=== PATIENT | female | born 1940 | race Caucasian/White ===

== ENCOUNTER 2017-03-24 16:47 | Inpatient (IN) | payer MEDICARE, MEDICAID ==
[~2017-03-24] VITALS: Ht 144.8 cm; Wt 69.6 kg
[~2017-03-24 16:47] MED LIST: ACAR50TA PO; ALBU4TAB6 PO; ASPI-1159 PO; FLUT1DIS3 IH; LOSA50TA20 PO; MONT10TA21 PO; OXYB5TAB11 PO; POLY10DR3 LEFTEYE
[2017-03-24] MEDS ORDERED: SODIUM CHLORIDE 0.9% 1000ML BAG (SEPSIS BOLUS) IV ONE (17:15)
[2017-03-24] MEDS ORDERED: CEFTRIAXONE 2 G PREMIX 50 ML IV ONE (17:15)
[2017-03-24 17:49] LABS: BASOPHILS % 0.6 % (0.0-2.0); EOSINOPHILS % 0.5 % (0.0-5.0); HEMOGLOBIN. 12.7 g/dL (12.0-16.0); LYMPHOCYTES % 10.1 % (20.0-50.0); MEAN CORPUSCULAR HEMOGLOBIN 30.7 pg (28.0-32.0); MEAN CORPUSCULAR VOLUME 89.3 fL (81.0-99.0); MEAN PLATELET VOLUME 9.5 fl (7.4-10.4); MONOCYTES % 7.8 % (2.0-8.0); PLATELET 157 x1000/uL (130-400); RED BLOOD CELL COUNT 4.14 mill/uL (4.2-5.4); RED CELL DISTRIBUTION WIDTH 13.9 % (11.6-14.6)
[2017-03-24 17:57] LABS: INR 1.1; PARTIAL THROMBOPLASTIN TIME 25.4 sec (23.4-31.0); PROTHROMBIN TIME 11.2 sec (9.4-11.6)
[2017-03-24 18:06] LABS: CARBON DIOXIDE 23 mEq/L (21-32); CHLORIDE 101 mEq/L (98-107); TROPONIN I < 0.02 ng/mL (0.00-0.04)
[2017-03-24 18:24] LABS: CLARITY URINE CLEAR (CLEAR); COLOR URINE YELLOW (YELLOW); GLUCOSE URINE NEGATIVE (NEGATIVE); KETONES URINE TRACE (NEGATIVE); LEUKOCYTE ESTERASE URINE 2+ (NEGATIVE); NITRITE URINE NEGATIVE (NEGATIVE); OCCULT BLOOD URINE 1+ (NEGATIVE); PROTEIN URINE NEGATIVE (NEGATIVE); SPECIFIC GRAVITY URINE 1.006 (1.005-1.030); UROBILINOGEN URINE 0.2 E.U./dL (0.2-1.0)
[2017-03-24] MEDS ORDERED: LEVOFLOXACIN 500MG PREMIX 100 ML IV ONE (18:30)
[2017-03-24] MEDS ORDERED: TRAMADOL 50MG TABLET PO ONE (18:30)
[2017-03-24 21:27] VITALS: BP 118/61
[2017-03-24 21:35] VITALS: BP 118/61
[2017-03-24 22:00] VITALS: BP 114/56
[2017-03-24] MEDS ORDERED: CEPH-569 PO (22:08)
[2017-03-24] MEDS ORDERED: CELE200C PO (22:08)
[2017-03-24] MEDS ORDERED: PNEUMOCOCCAL 23-VAL P-SAC VAC 0.5 ML IM ONE (22:30)
[2017-03-24] MEDS ORDERED: SODIUM CHLORIDE 0.9% 1,000 ML IV SCH (22:40)
[2017-03-24] MEDS ORDERED: ONDANSETRON HCL 4MG/2ML VIAL IV PRN (22:45)
[2017-03-24] MEDS ORDERED: MORPHINE SULFATE 4 MG/ML CPJ (NOT FOR IM USE) IV PRN (22:45)
[2017-03-24] MEDS ORDERED: HYDROCODONE/ACETAMINOPHEN 5/325MG TABLET PO PRN (22:45)
[2017-03-24] MEDS ORDERED: ROCEPHINE XX SCH (23:00)
[2017-03-25] VITALS (12 sets, daily range): BP systolic 107–150; BP diastolic 45–76
[2017-03-25] MEDS ORDERED: DEXTROSE 50% WATER 50ML SYRINGE IV PRN (01:00)
[2017-03-25] MEDS: BLOOD SUGAR DIAGNOSTIC STRIP TEST SCH ×4 (06:48→21:02)
[2017-03-25] MEDS: INSULIN LISPRO 100 UNITS/ML SUBCUT SCH ×4 (06:49→21:02)
[2017-03-25] MEDS: ENOXAPARIN 40MG/0.4ML SYR SUBCUT SCH (09:01)
[2017-03-25] MEDS: THIAMINE HCL 100MG TABLET PO SCH (09:02)
[2017-03-25] MEDS ORDERED: CEPHALEXIN 500MG CAPSULE PO SCH ×2 (17:00)
[2017-03-25] MEDS ORDERED: CEFTRIAXONE 1 G PREMIX 50 ML IV SCH (19:00)
[2017-03-25] MEDS ORDERED: TRAMADOL 50MG TABLET PO PRN (20:45)
[2017-03-25] MEDS ORDERED: ACETAMINOPHEN 325MG TABLET PO PRN (21:00)
[2017-03-25] MEDS ORDERED: IPRATROPIUM/ALBUTEROL 0.5-3(2.5)MG/3ML NEB HHN PRN (21:00)
[2017-03-25] MEDS ORDERED: MONTELUKAST SODIUM 10MG TABLET PO SCH (21:00)
[2017-03-26] VITALS (7 sets, daily range): BP systolic 114–150; BP diastolic 57–78
[2017-03-26] MEDS: INSULIN LISPRO 100 UNITS/ML SUBCUT SCH ×3 (07:30→17:17)
[2017-03-26] MEDS: BLOOD SUGAR DIAGNOSTIC STRIP TEST SCH ×3 (07:30→17:17)
[2017-03-26] MEDS ORDERED: LOSARTAN POTASSIUM 50 MG TABLET PO SCH (09:00)
[2017-03-26] MEDS ORDERED: OXYBUTYNIN CHLORIDE 5MG TABLET PO SCH (09:00)
[2017-03-26] MEDS ORDERED: CELECOXIB 200MG CAPSULE PO SCH (09:00)
[2017-03-26] MEDS ORDERED: ASPIRIN 81MG EC TABLET PO SCH (09:00)
[2017-03-26] MEDS: THIAMINE HCL 100MG TABLET PO SCH (09:02)
[2017-03-26] MEDS: ENOXAPARIN 40MG/0.4ML SYR SUBCUT SCH (09:02)
[2017-03-26] MEDS ORDERED: LEVOFLOXACIN 500MG TABLET PO SCH (17:15)
[2017-03-26] MEDS ORDERED: LIDOCAINE 5% PATCH TOP SCH (18:00)
== END 2017-03-26 18:00 | disposition home or self-care (01) | DRG 689 ==
LOC: ER 16:47 → 3WST 17:11 → EDBEDREQ 18:34 → ENRESERV 19:56 → 6WST 03-26 03:05
PROVIDERS: ADMIT Internal Medicine Nephrology; ATTEND Internal Medicine Nephrology
DX: N39.0 Urinary tract infection, site not specified (principal); G93.40 Encephalopathy, unspecified; E10.9 Type 1 diabetes mellitus without complications; I11.0 Hypertensive heart disease with heart failure; I50.9 Heart failure, unspecified; N30.00 Acute cystitis without hematuria; E66.9 Obesity, unspecified; Z96.649 Presence of unspecified artificial hip joint; M17.11 Unilateral primary osteoarthritis, right knee; K57.30 Diverticulosis of large intestine without perforation or abscess without bleeding; J45.909 Unspecified asthma, uncomplicated; Z79.4 Long term (current) use of insulin; Z82.49 Family history of ischemic heart disease and other diseases of the circulatory system; Z83.3 Family history of diabetes mellitus; Z79.82 Long term (current) use of aspirin; Z79.899 Other long term (current) drug therapy; Z68.33 Body mass index [BMI] 33.0-33.9, adult
CPT/HCPCS: 36415; 70450; 71010; 73562; 73700; 74176; 80053; 81001; 82962; 83036; 83605; 83690; 83880; 84484; 84550; 85025; 85610; 85730; 87040; 87086; 93005; 94664; 96361; 96365; 97116; 97161; 99291; J0696; J1650; J1815; J1956; J7030; J7620

== ENCOUNTER → 2018-01-13 | Outpatient (CLI) | payer MEDICARE, MEDICAID ==
[~2018-01-13] MED LIST changes: +CELE200C PO; +IOHEXOL-300 50 ML BOTTLE IV ONE
== END | disposition home or self-care (01) ==
LOC: CT 08:08
PROVIDERS: ATTEND Urology
DX: K63.2 Fistula of intestine (principal); N13.70 Vesicoureteral-reflux, unspecified; I51.7 Cardiomegaly; M48.56XD Collapsed vertebra, not elsewhere classified, lumbar region, subsequent encounter for fracture with routine healing
CPT/HCPCS: 74176; J7040; Q9967; A4315

== ENCOUNTER → 2018-02-12 | Outpatient (CLI) | payer MEDICARE, MEDICAID ==
[~2018-02-12] MED LIST changes: -IOHEXOL-300 50 ML BOTTLE IV ONE
== END | disposition home or self-care (01) ==
LOC: RAD 11:34
PROVIDERS: ATTEND Internal Medicine Nephrology
DX: J44.9 Chronic obstructive pulmonary disease, unspecified (principal); I51.7 Cardiomegaly; E11.9 Type 2 diabetes mellitus without complications
CPT/HCPCS: 71046

== ENCOUNTER 2018-10-15 17:07 | Emergency (ER) | payer MEDICARE, MEDICAID ==
[~2018-10-15] VITALS: Ht 152.4 cm; Wt 64.0 kg
[2018-10-15] MEDS ORDERED: ALBUTEROL (0.083%) 2.5MG/3ML NEB HHN STA (18:03)
[2018-10-15] MEDS ORDERED: IPRATROPIUM BROMIDE (0.02%) 0.5MG/2.5ML NEB HHN STA (18:03)
[2018-10-15] MEDS ORDERED: ALBUTEROL (0.5%) 2.5MG/0.5ML NEB HHN ONE (18:28)
[2018-10-15] MEDS ORDERED: IPRATROPIUM BROMIDE (0.02%) 0.5MG/2.5ML NEB ONE (18:29)
[2018-10-15] MEDS ORDERED: ALBUTEROL (0.083%) 2.5MG/3ML NEB ONE (18:29)
[2018-10-15 19:49] LABS: CHLORIDE 102 mEq/L (98-107)
[2018-10-15 19:53] LABS: BASOPHILS % 0.5 % (0.0-2.0); EOSINOPHILS % 4.2 % (0.0-5.0); HEMATOCRIT. 38.5 % (36.0-48.0); HEMOGLOBIN. 13.1 g/dL (12.0-16.0); LYMPHOCYTES % 32.2 % (20.0-50.0); MEAN CORPUSCULAR HEMOGLOBIN 31.8 pg (28.0-32.0); MEAN CORPUSCULAR VOLUME 93.2 fL (81.0-99.0); MEAN PLATELET VOLUME 9.8 fl (7.4-10.4); MONOCYTES % 10.3 % (2.0-8.0); NEUTROPHILS % 52.8 % (40.0-76.0); PLATELET 157 x1000/uL (130-400); RED BLOOD CELL COUNT 4.13 mill/uL (4.2-5.4); RED CELL DISTRIBUTION WIDTH 13.6 % (11.6-14.6)
[2018-10-15 21:06] VITALS: BP 120/71
== END 2018-10-15 21:17 | disposition home or self-care (01) ==
LOC: ER 17:07 → CANBEDREQ 22:05
DX: J44.1 Chronic obstructive pulmonary disease with (acute) exacerbation (principal); J98.01 Acute bronchospasm; J06.9 Acute upper respiratory infection, unspecified; E87.6 Hypokalemia; E11.9 Type 2 diabetes mellitus without complications; I10 Essential (primary) hypertension; Z79.899 Other long term (current) drug therapy
CPT/HCPCS: 36415; 71045; 80053; 83880; 84484; 85025; 93005; 94640; 99284; J7611

== ENCOUNTER 2018-10-21 06:59 | Inpatient (IN) | payer MEDICARE, MEDICAID ==
[~2018-10-21] VITALS: Ht 160 cm; Wt 66.7 kg
[~2018-10-21 06:59] MED LIST changes: -ASPI-1159 PO; +ASPI-1393 PO; -LOSA50TA20 PO; +LOSA50TA41 PO
[2018-10-21] MEDS ORDERED: ACETAMINOPHEN 325MG TABLET PO ONE (07:30)
[2018-10-21 08:55] LABS: BASOPHILS % 0.3 % (0.0-2.0); EOSINOPHILS % 0.8 % (0.0-5.0); HEMATOCRIT. 40.4 % (36.0-48.0); HEMOGLOBIN. 13.5 g/dL (12.0-16.0); LYMPHOCYTES % 13.6 % (20.0-50.0); MEAN CORPUSCULAR HEMOGLOBIN 31.1 pg (28.0-32.0); MEAN CORPUSCULAR VOLUME 92.5 fL (81.0-99.0); MEAN PLATELET VOLUME 8.8 fl (7.4-10.4); MONOCYTES % 5.1 % (2.0-8.0); NEUTROPHILS % 80.2 % (40.0-76.0); PLATELET 209 x1000/uL (130-400); RED BLOOD CELL COUNT 4.36 mill/uL (4.2-5.4); RED CELL DISTRIBUTION WIDTH 13.4 % (11.6-14.6)
[2018-10-21 09:00] LABS: CHLORIDE 103 mEq/L (98-107)
[2018-10-21 09:02] LABS: PROTHROMBIN TIME 10.4 sec (9.6-11.0)
[2018-10-21] MEDS ORDERED: ONDANSETRON HCL 4MG/2ML INJ IV ONE (09:45)
[2018-10-21] MEDS ORDERED: KETAMINE HCL 50 MG/ML 10ML IV ONE (09:45)
[2018-10-21] MEDS ORDERED: PROPOFOL 200MG/20ML VIAL IV PRN (09:45)
[2018-10-21 14:30] VITALS: BP 129/66
[2018-10-21 16:00] VITALS: BP 140/75
[2018-10-21] MEDS: TRAMADOL 50MG TABLET PO PRN (18:09)
[2018-10-21] MEDS: LIDOCAINE 5% PATCH TOP SCH ×2 (18:30→22:01)
[2018-10-21 20:00] VITALS: BP 138/73
[2018-10-21] MEDS ORDERED: MAGNESIUM/ALUMINUM HYDROXIDE/SIMETHICONE 30ML UDC PO PRN (23:45)
[2018-10-21] MEDS ORDERED: ONDANSETRON HCL 4MG/2ML INJ IV PRN (23:45)
[2018-10-21] MEDS ORDERED: ACETAMINOPHEN 325MG TABLET PO PRN (23:45)
[2018-10-21] MEDS ORDERED: DOCUSATE SODIUM 100MG CAPSULE PO PRN (23:45)
[2018-10-21] MEDS ORDERED: DEXTROSE 50% WATER 50ML SYRINGE IV PRN ×2 (23:45)
[2018-10-22] VITALS: BP 125/61
[2018-10-22 04:00] VITALS: BP 128/83
[2018-10-22] MEDS: BLOOD SUGAR DIAGNOSTIC STRIP TEST SCH ×4 (06:27→21:02)
[2018-10-22 07:34] LABS: BASOPHILS % 0.4 % (0.0-2.0); HEMOGLOBIN. 13.3 g/dL (12.0-16.0); LYMPHOCYTES % 13.3 % (20.0-50.0); MEAN CORPUSCULAR HEMOGLOBIN 31.5 pg (28.0-32.0); MEAN CORPUSCULAR VOLUME 92.3 fL (81.0-99.0); MEAN PLATELET VOLUME 9.5 fl (7.4-10.4); MONOCYTES % 5.8 % (2.0-8.0); NEUTROPHILS % 79.5 % (40.0-76.0); PLATELET 218 x1000/uL (130-400); RED BLOOD CELL COUNT 4.23 mill/uL (4.2-5.4); RED CELL DISTRIBUTION WIDTH 13.6 % (11.6-14.6)
[2018-10-22 07:55] LABS: CHLORIDE 101 mEq/L (98-107)
[2018-10-22 08:00] VITALS: BP 150/83
[2018-10-22 08:06] LABS: PHOSPHORUS 3.3 mg/dL (2.5-4.9)
[2018-10-22] MEDS: INSULIN LISPRO 100 UNITS/ML SUBCUT SCH ×4 (08:23→21:00)
[2018-10-22] MEDS: LIDOCAINE 5% PATCH TOP SCH ×3 (08:24→09:23)
[2018-10-22] MEDS: OXYBUTYNIN CHLORIDE 5MG TABLET PO SCH (10:46)
[2018-10-22] MEDS: LOSARTAN POTASSIUM 50 MG TABLET PO SCH (10:46)
[2018-10-22] MEDS: CELECOXIB 200MG CAPSULE PO SCH (10:47)
[2018-10-22 12:00] VITALS: BP 111/57
[2018-10-22] MEDS: POLYMYXIN B SULFATE/TMP 10ML BOTTLE LEFTEYE SCH ×3 (12:38→21:01)
[2018-10-22] MEDS: FLUTICASONE/VILANTEROL 200-25 BLST.W.DEV ORI SCH (12:39)
[2018-10-22 16:00] VITALS: BP 115/57
[2018-10-22] MEDS: MONTELUKAST SODIUM 10MG TABLET PO SCH (17:39)
[2018-10-22 20:00] VITALS: BP 131/76
[2018-10-22] MEDS: TRAMADOL 50MG TABLET PO PRN (21:01)
[2018-10-23] VITALS: BP 97/73
[2018-10-23 04:00] VITALS: BP 144/79
[2018-10-23] MEDS: INSULIN LISPRO 100 UNITS/ML SUBCUT SCH ×4 (07:04→21:00)
[2018-10-23] MEDS: BLOOD SUGAR DIAGNOSTIC STRIP TEST SCH ×4 (07:20→21:16)
[2018-10-23 08:05] VITALS: BP 125/72
[2018-10-23] MEDS: CELECOXIB 200MG CAPSULE PO SCH (08:29)
[2018-10-23] MEDS: OXYBUTYNIN CHLORIDE 5MG TABLET PO SCH (08:30)
[2018-10-23] MEDS: LIDOCAINE 5% PATCH TOP SCH (08:33)
[2018-10-23] MEDS: LOSARTAN POTASSIUM 50 MG TABLET PO SCH (08:34)
[2018-10-23] MEDS: FLUTICASONE/VILANTEROL 200-25 BLST.W.DEV ORI SCH (08:43)
[2018-10-23] MEDS: POLYMYXIN B SULFATE/TMP 10ML BOTTLE LEFTEYE SCH ×4 (09:21→21:16)
[2018-10-23 11:33] LABS: BASOPHILS % 0.1 % (0.0-2.0); EOSINOPHILS % 1.5 % (0.0-5.0); HEMATOCRIT. 41.6 % (36.0-48.0); LYMPHOCYTES % 12.1 % (20.0-50.0); MEAN CORPUSCULAR HEMOGLOBIN 31.2 pg (28.0-32.0); MEAN CORPUSCULAR VOLUME 92.7 fL (81.0-99.0); MONOCYTES % 4.6 % (2.0-8.0); NEUTROPHILS % 81.7 % (40.0-76.0); PLATELET 220 x1000/uL (130-400); RED BLOOD CELL COUNT 4.48 mill/uL (4.2-5.4); RED CELL DISTRIBUTION WIDTH 13.5 % (11.6-14.6)
[2018-10-23 11:36] VITALS: BP 120/68
[2018-10-23 12:24] LABS: CHLORIDE 101 mEq/L (98-107)
[2018-10-23 12:31] LABS: PHOSPHORUS 2.9 mg/dL (2.5-4.9)
[2018-10-23] MEDS: IPRATROPIUM/ALBUTEROL 0.5-3(2.5)MG/3ML NEB HHN PRN (14:58)
[2018-10-23 15:35] VITALS: BP 120/63
[2018-10-23] MEDS ORDERED: DOCUSATE SODIUM 100MG CAPSULE PO PRN (17:15)
[2018-10-23] MEDS: MONTELUKAST SODIUM 10MG TABLET PO SCH (17:39)
[2018-10-23] MEDS: HYDROCODONE/ACETAMINOPHEN 5/325MG TABLET PO PRN (17:40)
[2018-10-23 20:00] VITALS: BP 116/57
[2018-10-24] VITALS: BP 139/62
[2018-10-24 04:00] VITALS: BP 124/71
[2018-10-24] MEDS: BLOOD SUGAR DIAGNOSTIC STRIP TEST SCH ×4 (06:29→20:17)
[2018-10-24] MEDS: LIDOCAINE 5% PATCH TOP SCH (07:23)
[2018-10-24 08:00] VITALS: BP 126/76
[2018-10-24] MEDS: CELECOXIB 200MG CAPSULE PO SCH (08:40)
[2018-10-24] MEDS: OXYBUTYNIN CHLORIDE 5MG TABLET PO SCH (08:40)
[2018-10-24] MEDS: LOSARTAN POTASSIUM 50 MG TABLET PO SCH (08:41)
[2018-10-24] MEDS: INSULIN LISPRO 100 UNITS/ML SUBCUT SCH ×4 (08:41→20:17)
[2018-10-24] MEDS: POLYMYXIN B SULFATE/TMP 10ML BOTTLE LEFTEYE SCH ×4 (08:43→20:17)
[2018-10-24] MEDS: FLUTICASONE/VILANTEROL 200-25 BLST.W.DEV ORI SCH (08:43)
[2018-10-24 11:59] VITALS: BP 133/64
[2018-10-24 15:41] VITALS: BP 101/54
[2018-10-24] MEDS: MONTELUKAST SODIUM 10MG TABLET PO SCH (17:01)
[2018-10-24 20:00] VITALS: BP 124/73
[2018-10-24] MEDS: GUAIFENESIN/CODEINE 200-20MG/10ML UDC PO PRN (20:16)
[2018-10-24] MEDS: TRAMADOL 50MG TABLET PO PRN (20:16)
[2018-10-24] MEDS: IPRATROPIUM/ALBUTEROL 0.5-3(2.5)MG/3ML NEB HHN PRN (21:56)
[2018-10-25] VITALS: BP 110/66
[2018-10-25 04:00] VITALS: BP 136/78
[2018-10-25] MEDS: BLOOD SUGAR DIAGNOSTIC STRIP TEST SCH ×4 (06:11→21:00)
[2018-10-25] MEDS: INSULIN LISPRO 100 UNITS/ML SUBCUT SCH ×4 (06:42→22:26)
[2018-10-25 08:00] VITALS: BP 101/63
[2018-10-25] MEDS: LOSARTAN POTASSIUM 50 MG TABLET PO SCH (09:00)
[2018-10-25] MEDS: POLYMYXIN B SULFATE/TMP 10ML BOTTLE LEFTEYE SCH ×4 (09:22→22:24)
[2018-10-25] MEDS: OXYBUTYNIN CHLORIDE 5MG TABLET PO SCH (09:22)
[2018-10-25] MEDS: LIDOCAINE 5% PATCH TOP SCH (09:23)
[2018-10-25] MEDS: GUAIFENESIN/CODEINE 200-20MG/10ML UDC PO PRN (09:49)
[2018-10-25] MEDS: CELECOXIB 200MG CAPSULE PO SCH (10:23)
[2018-10-25] MEDS: FLUTICASONE/VILANTEROL 200-25 BLST.W.DEV ORI SCH (10:53)
[2018-10-25 12:00] VITALS: BP 120/78
[2018-10-25] MEDS: DILTIAZEM HCL 30MG TABLET PO SCH ×2 (13:30→22:00)
[2018-10-25 16:00] VITALS: BP 132/60
[2018-10-25] MEDS: MONTELUKAST SODIUM 10MG TABLET PO SCH (17:58)
[2018-10-25] MEDS: METHYLPREDNISOLONE SOD SUCC 40 MG/ML VIAL IV SCH ×2 (17:58→22:24)
[2018-10-25] MEDS: CEFTRIAXONE 1 G PREMIX 50 ML IV SCH (18:48)
[2018-10-25 20:00] VITALS: BP 109/49
[2018-10-25] MEDS: AZITHROMYCIN 500 MG in DEXT 5% WATER 250 ML IV SCH (22:24)
[2018-10-25] MEDS: GUAIFENESIN 600MG ER TABLET PO SCH (22:25)
[2018-10-25] MEDS: LACTULOSE 20G/30ML UDC PO SCH (22:25)
[2018-10-25] MEDS: HYDROCODONE/ACETAMINOPHEN 5/325MG TABLET PO PRN (22:27)
[2018-10-26] VITALS: BP 112/67
[2018-10-26 04:00] VITALS: BP 111/59
[2018-10-26] MEDS: DILTIAZEM HCL 30MG TABLET PO SCH ×2 (06:00→13:14)
[2018-10-26] MEDS: LACTULOSE 20G/30ML UDC PO SCH ×4 (06:00→21:18)
[2018-10-26] MEDS: BLOOD SUGAR DIAGNOSTIC STRIP TEST SCH ×4 (06:44→20:57)
[2018-10-26] MEDS: METHYLPREDNISOLONE SOD SUCC 40 MG/ML VIAL IV SCH ×3 (06:57→21:03)
[2018-10-26] MEDS: INSULIN LISPRO 100 UNITS/ML SUBCUT SCH ×4 (06:59→22:28)
[2018-10-26 08:00] VITALS: BP 132/71
[2018-10-26] MEDS: LOSARTAN POTASSIUM 50 MG TABLET PO SCH (09:00)
[2018-10-26] MEDS: GUAIFENESIN 600MG ER TABLET PO SCH ×2 (09:00→20:58)
[2018-10-26] MEDS: CELECOXIB 200MG CAPSULE PO SCH (09:00)
[2018-10-26] MEDS: OXYBUTYNIN CHLORIDE 5MG TABLET PO SCH (09:00)
[2018-10-26] MEDS: LIDOCAINE 5% PATCH TOP SCH (09:46)
[2018-10-26] MEDS: FLUTICASONE/VILANTEROL 200-25 BLST.W.DEV ORI SCH (09:47)
[2018-10-26] MEDS: POLYMYXIN B SULFATE/TMP 10ML BOTTLE LEFTEYE SCH ×4 (09:54→21:04)
[2018-10-26] MEDS ORDERED: METOPROLOL TARTRATE 5MG/5ML VIAL IV NR (14:00)
[2018-10-26] MEDS: SODIUM CHLORIDE 0.9% 1,000 ML IV SCH (14:39)
[2018-10-26 16:00] VITALS: BP 133/83
[2018-10-26] MEDS: MONTELUKAST SODIUM 10MG TABLET PO SCH (17:00)
[2018-10-26] MEDS: CEFTRIAXONE 1 G PREMIX 50 ML IV SCH (17:52)
[2018-10-26] MEDS ORDERED: PROPOFOL 200MG/20ML VIAL IV ONE (18:19)
[2018-10-26] MEDS ORDERED: FENTANYL CITRATE/PF 50MCG/ML 2ML VIAL ONE (18:19)
[2018-10-26] MEDS ORDERED: LIDOCAINE HCL/PF 1% 10 MG/ML 5ML VIAL ONE (18:19)
[2018-10-26] MEDS ORDERED: ONDANSETRON HCL 4MG/2ML INJ IV PRN (19:00)
[2018-10-26] MEDS ORDERED: FENTANYL CITRATE/PF 50MCG/ML 2ML VIAL IV PRN (19:00)
[2018-10-26 20:30] VITALS: BP 136/53
[2018-10-26] MEDS: AZITHROMYCIN 500 MG in DEXT 5% WATER 250 ML IV SCH (20:58)
[2018-10-26] MEDS: GUAIFENESIN/CODEINE 200-20MG/10ML UDC PO PRN (22:21)
[2018-10-27] VITALS: BP 139/62
[2018-10-27 04:00] VITALS: BP 138/62
[2018-10-27] MEDS: LACTULOSE 20G/30ML UDC PO SCH ×3 (06:00→20:52)
[2018-10-27] MEDS: BLOOD SUGAR DIAGNOSTIC STRIP TEST SCH ×4 (06:28→20:39)
[2018-10-27] MEDS: METHYLPREDNISOLONE SOD SUCC 40 MG/ML VIAL IV SCH ×3 (06:33→22:27)
[2018-10-27] MEDS: INSULIN LISPRO 100 UNITS/ML SUBCUT SCH ×4 (06:36→20:51)
[2018-10-27 07:03] LABS: HEMATOCRIT. 35.8 % (36.0-48.0); HEMOGLOBIN. 12.1 g/dL (12.0-16.0); MEAN CORPUSCULAR HEMOGLOBIN 31.2 pg (28.0-32.0); MEAN CORPUSCULAR VOLUME 92.8 fL (81.0-99.0); MEAN PLATELET VOLUME 9.2 fl (7.4-10.4); PLATELET 203 x1000/uL (130-400); RED BLOOD CELL COUNT 3.86 mill/uL (4.2-5.4); RED CELL DISTRIBUTION WIDTH 13.2 % (11.6-14.6)
[2018-10-27 07:08] LABS: CHLORIDE 101 mEq/L (98-107)
[2018-10-27 07:20] LABS: PHOSPHORUS 2.8 mg/dL (2.5-4.9)
[2018-10-27 08:00] VITALS: BP 141/54
[2018-10-27] MEDS: LIDOCAINE 5% PATCH TOP SCH (09:10)
[2018-10-27] MEDS: GUAIFENESIN 600MG ER TABLET PO SCH ×2 (09:12→20:26)
[2018-10-27] MEDS: POLYMYXIN B SULFATE/TMP 10ML BOTTLE LEFTEYE SCH ×4 (09:12→20:26)
[2018-10-27] MEDS: CELECOXIB 200MG CAPSULE PO SCH (09:12)
[2018-10-27] MEDS: OXYBUTYNIN CHLORIDE 5MG TABLET PO SCH (09:13)
[2018-10-27] MEDS: LOSARTAN POTASSIUM 50 MG TABLET PO SCH (09:13)
[2018-10-27] MEDS: FLUTICASONE/VILANTEROL 200-25 BLST.W.DEV ORI SCH (09:23)
[2018-10-27 12:00] VITALS: BP 135/49
[2018-10-27 13:50] LABS: PLATELET ESTIMATE NORMAL
[2018-10-27 16:00] VITALS: BP 123/52
[2018-10-27] MEDS: SODIUM CHLORIDE 0.9% 1,000 ML IV SCH (16:34)
[2018-10-27] MEDS: MONTELUKAST SODIUM 10MG TABLET PO SCH (17:38)
[2018-10-27] MEDS: CEFTRIAXONE 1 G PREMIX 50 ML IV SCH (17:38)
[2018-10-27 20:00] VITALS: BP 132/67
[2018-10-27] MEDS: AZITHROMYCIN 500 MG in DEXT 5% WATER 250 ML IV SCH (20:25)
[2018-10-28] VITALS: BP_SYST 116; BP_SYST 137; BP_DIAS 57; BP_DIAS 62
[2018-10-28 04:00] VITALS: BP 137/85
[2018-10-28] MEDS: LACTULOSE 20G/30ML UDC PO SCH ×2 (06:00→13:00)
[2018-10-28] MEDS: SODIUM CHLORIDE 0.9% 1,000 ML IV SCH (06:38)
[2018-10-28] MEDS: METHYLPREDNISOLONE SOD SUCC 40 MG/ML VIAL IV SCH ×3 (06:38→21:47)
[2018-10-28] MEDS: BLOOD SUGAR DIAGNOSTIC STRIP TEST SCH ×4 (06:46→20:51)
[2018-10-28 08:00] VITALS: BP 109/52
[2018-10-28] MEDS: INSULIN LISPRO 100 UNITS/ML SUBCUT SCH ×4 (08:24→21:00)
[2018-10-28] MEDS: POLYMYXIN B SULFATE/TMP 10ML BOTTLE LEFTEYE SCH ×4 (08:25→21:48)
[2018-10-28] MEDS: GUAIFENESIN 600MG ER TABLET PO SCH ×2 (08:25→21:47)
[2018-10-28] MEDS: LOSARTAN POTASSIUM 50 MG TABLET PO SCH (08:25)
[2018-10-28] MEDS: CELECOXIB 200MG CAPSULE PO SCH (08:25)
[2018-10-28] MEDS: OXYBUTYNIN CHLORIDE 5MG TABLET PO SCH (08:25)
[2018-10-28] MEDS: FLUTICASONE/VILANTEROL 200-25 BLST.W.DEV ORI SCH (08:26)
[2018-10-28] MEDS: LIDOCAINE 5% PATCH TOP SCH (08:45)
[2018-10-28 12:00] VITALS: BP 151/74
[2018-10-28 16:00] VITALS: BP 145/88
[2018-10-28] MEDS: MONTELUKAST SODIUM 10MG TABLET PO SCH (17:25)
[2018-10-28] MEDS: CEFTRIAXONE 1 G PREMIX 50 ML IV SCH (17:30)
[2018-10-28] MEDS: FUROSEMIDE 20MG/2ML VIAL IVP SCH (17:42)
[2018-10-28 20:00] VITALS: BP 133/55
[2018-10-28] MEDS ORDERED: AZITHROMYCIN 500 MG TABLET PO SCH (20:00)
[2018-10-28] MEDS: IPRATROPIUM/ALBUTEROL 0.5-3(2.5)MG/3ML NEB HHN SCH (20:07)
[2018-10-29] MEDS: IPRATROPIUM/ALBUTEROL 0.5-3(2.5)MG/3ML NEB HHN SCH ×3 (02:57→13:27)
[2018-10-29 04:00] VITALS: BP 116/62
[2018-10-29] MEDS: BLOOD SUGAR DIAGNOSTIC STRIP TEST SCH ×3 (06:20→17:00)
[2018-10-29] MEDS: METHYLPREDNISOLONE SOD SUCC 40 MG/ML VIAL IV SCH ×2 (06:20→13:50)
[2018-10-29 08:00] VITALS: BP 167/73
[2018-10-29] MEDS: OXYBUTYNIN CHLORIDE 5MG TABLET PO SCH (08:41)
[2018-10-29] MEDS: CELECOXIB 200MG CAPSULE PO SCH (08:42)
[2018-10-29] MEDS: GUAIFENESIN 600MG ER TABLET PO SCH (08:42)
[2018-10-29] MEDS: FLUTICASONE/VILANTEROL 200-25 BLST.W.DEV ORI SCH (08:43)
[2018-10-29] MEDS: LOSARTAN POTASSIUM 50 MG TABLET PO SCH (08:44)
[2018-10-29] MEDS: FUROSEMIDE 20MG/2ML VIAL IVP SCH (08:44)
[2018-10-29] MEDS: POLYMYXIN B SULFATE/TMP 10ML BOTTLE LEFTEYE SCH ×2 (08:44→13:50)
[2018-10-29] MEDS: INSULIN LISPRO 100 UNITS/ML SUBCUT SCH ×3 (08:46→18:33)
[2018-10-29] MEDS: LIDOCAINE 5% PATCH TOP SCH (08:48)
[2018-10-29 12:00] VITALS: BP 116/72
[2018-10-29 16:00] VITALS: BP 139/69
[2018-10-29] MEDS: MONTELUKAST SODIUM 10MG TABLET PO SCH (18:28)
[2018-10-29 18:35] VITALS: BP 139/69
== END 2018-10-29 19:05 | disposition home or self-care (01) | DRG 563 ==
LOC: ER 06:59 → 6WST 12:25 → ENRESERV 13:02 → 8WST 10-24 17:52
PROVIDERS: ADMIT Internal Medicine Nephrology; ATTEND Internal Medicine Nephrology
PROC: 0XJ2XZZ Inspection of Right Shoulder Region, External Approach (ICD-10-PCS; principal; 2018-10-21)
PROC: 0PSCXZZ Reposition Right Humeral Head, External Approach (ICD-10-PCS; 2018-10-26)
PROC: BP181ZZ Fluoroscopy of Right Shoulder using Low Osmolar Contrast (ICD-10-PCS; 2018-10-26)
DX: S42.141A Displaced fracture of glenoid cavity of scapula, right shoulder, initial encounter for closed fracture (principal); S22.41XA Multiple fractures of ribs, right side, initial encounter for closed fracture; J44.0 Chronic obstructive pulmonary disease with (acute) lower respiratory infection; M87.811 Other osteonecrosis, right shoulder; W01.0XXA Fall on same level from slipping, tripping and stumbling without subsequent striking against object, initial encounter; Z96.652 Presence of left artificial knee joint; I48.0 Paroxysmal atrial fibrillation; E11.9 Type 2 diabetes mellitus without complications; J20.9 Acute bronchitis, unspecified; M19.011 Primary osteoarthritis, right shoulder; Y93.01 Activity, walking, marching and hiking; R26.9 Unspecified abnormalities of gait and mobility; H10.9 Unspecified conjunctivitis; I10 Essential (primary) hypertension; Z79.899 Other long term (current) drug therapy; Z79.82 Long term (current) use of aspirin; Y92.090 Kitchen in other non-institutional residence as the place of occurrence of the external cause; Y99.8 Other external cause status
CPT/HCPCS: 36415; 71045; 71101; 73030; 73200; 76000; 80048; 82962; 83036; 83735; 84100; 86850; 86900; 93005; 93306; 93970; 94640; 96374; 96375; 97116; 97162; 97164; 99285; J0456; J0696; J1815; J1940; J2405; J2704; J2920; J3010; J3490; J7030; J7050; J7060; J7620; L3670

== ENCOUNTER 2019-05-09 13:10 | Emergency (ER) | payer MEDICARE, MEDICAID ==
[~2019-05-09] VITALS: Ht 142.2 cm; Wt 64.0 kg
[2019-05-09 13:20] VITALS: BP 154/76
== END 2019-05-09 18:43 | disposition left against medical advice (07) ==
LOC: ER 13:10
DX: R68.89 Other general symptoms and signs (principal); Z53.21 Procedure and treatment not carried out due to patient leaving prior to being seen by health care provider

== ENCOUNTER → 2020-01-04 | Outpatient (CLI) | payer MEDICARE, MEDICAID ==
[~2020-01-04] MED LIST changes: -ACAR50TA PO; +ACAR50TA5 PO; -ASPI-1393 PO; +ASPI-1497 PO; -OXYB5TAB11 PO; +OXYB5TAB17 PO
== END | disposition home or self-care (01) ==
LOC: MRI 10:25
PROVIDERS: ATTEND Internal Medicine Nephrology
DX: G31.1 Senile degeneration of brain, not elsewhere classified (principal); I67.82 Cerebral ischemia
CPT/HCPCS: 70551

== ENCOUNTER → 2021-07-31 | Outpatient (CLI) | payer MEDICARE, MEDICAID | END | disposition home or self-care (01) | LOC: RAD 12:59 | PROVIDERS: ATTEND Internal Medicine Nephrology | DX: M17.12 Unilateral primary osteoarthritis, left knee (principal); M17.11 Unilateral primary osteoarthritis, right knee; M85.862 Other specified disorders of bone density and structure, left lower leg; M85.861 Other specified disorders of bone density and structure, right lower leg; T84.195A Other mechanical complication of internal fixation device of left femur, initial encounter; X58.XXXA Exposure to other specified factors, initial encounter | CPT/HCPCS: 73560 ==

== ENCOUNTER → 2021-09-10 | Outpatient (CLI) | payer MEDICARE, MEDICAID ==
[~2021-09-10] MED LIST changes: +IOHEXOL-300 50 ML BOTTLE IV ONE
== END | disposition home or self-care (01) ==
LOC: CT 08:55
PROVIDERS: ATTEND Urology
DX: K57.30 Diverticulosis of large intestine without perforation or abscess without bleeding (principal); K40.90 Unilateral inguinal hernia, without obstruction or gangrene, not specified as recurrent; K75.3 Granulomatous hepatitis, not elsewhere classified; M26.07 Excessive tuberosity of jaw; J98.11 Atelectasis; I70.8 Atherosclerosis of other arteries; M47.816 Spondylosis without myelopathy or radiculopathy, lumbar region
CPT/HCPCS: 74176; Q9967

== ENCOUNTER 2021-09-25 09:56 | Emergency (ER) | payer MEDICARE, MEDICAID ==
[~2021-09-25] VITALS: Ht 149.9 cm; Wt 59.0 kg
[~2021-09-25 09:56] MED LIST changes: -IOHEXOL-300 50 ML BOTTLE IV ONE
[2021-09-25] MEDS ORDERED: KETOROLAC 30MG/ML VIAL IV STA (10:07)
[2021-09-25] MEDS ORDERED: METOCLOPRAMIDE HCL 10MG/2ML VIAL IV ONE (10:15)
[2021-09-25 11:18] VITALS: BP 130/75
[2021-09-25] MEDS ORDERED: TOPUD PO (11:46)
== END 2021-09-25 12:10 | disposition home or self-care (01) ==
LOC: ER 10:05
DX: R51.9 Headache, unspecified (principal); E11.9 Type 2 diabetes mellitus without complications; J45.909 Unspecified asthma, uncomplicated; I25.10 Atherosclerotic heart disease of native coronary artery without angina pectoris; I11.9 Hypertensive heart disease without heart failure; Z79.82 Long term (current) use of aspirin; Z96.649 Presence of unspecified artificial hip joint; Z96.659 Presence of unspecified artificial knee joint
CPT/HCPCS: 96374; 96375; 99284; J1885; J2765

== ENCOUNTER 2021-12-02 11:30 | Inpatient (IN) | payer MEDICARE, MEDICAID ==
[~2021-12-02] VITALS: Ht 147.3 cm; Wt 75.3 kg
[~2021-12-02 11:30] MED LIST changes: +ALBU2.5V13 NEB; +BACITRACIN 15GM TUBE TOP ONE; +FLUT1BLS IH; +LIDOCAINE HCL/EPINEPHRINE 1%-EPI 1:100,000 20 ML VIAL ONE; +POLYMYXIN B SULFATE 500000 UNITS/VIAL ONE; +SKIN ADHESIVE 0.7 GM EA TOP ONE; +TOPUD PO; +VANCOMYCIN HCL 1 GM/VIAL ONE
[2021-12-02 11:59] LABS: BASOPHILS % 0.8 % (0.0-2.0); EOSINOPHILS % 4.4 % (0.0-5.0); HEMATOCRIT. 33.9 % (36.0-48.0); HEMOGLOBIN. 11.3 g/dL (12.0-16.0); LYMPHOCYTES % 24.2 % (20.0-50.0); MEAN CORPUSCULAR HEMOGLOBIN 31.6 pg (28.0-32.0); MEAN CORPUSCULAR VOLUME 95.2 fL (81.0-99.0); MONOCYTES % 8.5 % (2.0-8.0); NEUTROPHILS % 62.1 % (40.0-76.0); PLATELET 198 x1000/uL (130-400); RED BLOOD CELL COUNT 3.56 mill/uL (4.2-5.4); RED CELL DISTRIBUTION WIDTH 14.2 % (11.6-14.6)
[2021-12-02] MEDS ORDERED: SODIUM CHLORIDE 0.9% 1,000 ML IV SCH (12:00)
[2021-12-02 12:45] LABS: CHLORIDE 103 mEq/L (98-107)
[2021-12-02] MEDS ORDERED: ONDANSETRON HCL 4MG/2ML INJ IV PRN ×2 (13:45→15:45)
[2021-12-02] MEDS ORDERED: MEPERIDINE HCL/PF 25MG/ML CPJ IV PRN (13:45)
[2021-12-02] MEDS ORDERED: LABETALOL 5MG/ML SYR 20 MG/4 ML SYRINGE IV PRN (13:45)
[2021-12-02] MEDS ORDERED: SKIN ADHESIVE 0.7 GM EA TOP ONE (15:37)
[2021-12-02] MEDS ORDERED: KETOROLAC 30MG/ML VIAL IV PRN (15:45)
[2021-12-02] MEDS ORDERED: CEFAZOLIN 1000MG PREMIX 50 ML IV SCH (15:45)
[2021-12-02] MEDS ORDERED: ACETAMINOPHEN 325MG TABLET PO PRN (15:45)
[2021-12-02] MEDS ORDERED: HYDROCODONE/ACETAMINOPHEN 5/325MG TABLET PO PRN (15:45)
[2021-12-02 19:00] VITALS: BP 151/81
[2021-12-02] MEDS ORDERED: NALOXONE HCL 0.4MG/ML VIAL IV PRN (19:00)
[2021-12-02] MEDS: HYDROMORPHONE HCL/PF 2MG/ML CPJ IV PRN (19:11)
[2021-12-02 20:00] VITALS: BP 128/69
[2021-12-02 20:22] VITALS: BP 128/69
[2021-12-02] MEDS: METOCLOPRAMIDE HCL 10MG/2ML VIAL IV SCH (22:42)
[2021-12-02] MEDS: CEFAZOLIN 1000MG PREMIX 50 ML IV SCH (22:42)
[2021-12-02] MEDS ORDERED: MORPHINE SULFATE 2 MG/ML CPJ (NOT FOR IM USE) IV PRN (23:15)
[2021-12-03] VITALS: BP 138/96
[2021-12-03] MEDS ORDERED: CLONIDINE 0.1MG TABLET PO PRN
[2021-12-03] MEDS ORDERED: DEXTROSE 50% WATER 50ML SYRINGE IV PRN
[2021-12-03] MEDS ORDERED: ALBUTEROL (0.083%) 2.5MG/3ML NEB HHN PRN
[2021-12-03] MEDS: SODIUM CHLORIDE 0.9% 1,000 ML IV SCH ×2 (00:34→16:40)
[2021-12-03 04:00] VITALS: BP 120/72
[2021-12-03] MEDS ORDERED: *PATIENT'S OWN MEDICATION STORAGE XX SCH (04:00)
[2021-12-03] MEDS: METOCLOPRAMIDE HCL 10MG/2ML VIAL IV SCH ×3 (05:05→22:07)
[2021-12-03] MEDS: HYDROMORPHONE HCL/PF 2MG/ML CPJ IV PRN (05:05)
[2021-12-03] MEDS: CEFAZOLIN 1000MG PREMIX 50 ML IV SCH ×3 (05:05→22:39)
[2021-12-03] MEDS ORDERED: METOPROLOL TARTRATE 5MG/5ML VIAL IV PRN (06:30)
[2021-12-03 06:55] LABS: HEMATOCRIT. 33.3 % (36.0-48.0); HEMOGLOBIN. 11.3 g/dL (12.0-16.0); MEAN CORPUSCULAR HEMOGLOBIN 32.2 pg (28.0-32.0); MEAN CORPUSCULAR VOLUME 94.8 fL (81.0-99.0); MEAN PLATELET VOLUME 9.5 fl (7.4-10.4); PLATELET 166 x1000/uL (130-400); RED BLOOD CELL COUNT 3.51 mill/uL (4.2-5.4); RED CELL DISTRIBUTION WIDTH 13.9 % (11.6-14.6)
[2021-12-03] MEDS ORDERED: METOPROLOL TARTRATE 25MG TABLET PO PRN (07:00)
[2021-12-03 07:05] LABS: CHLORIDE 105 mEq/L (98-107)
[2021-12-03 08:00] VITALS: BP 141/76
[2021-12-03] MEDS: BLOOD SUGAR DIAGNOSTIC STRIP TEST SCH ×4 (08:03→21:00)
[2021-12-03] MEDS ORDERED: FLUTICASONE/VILANTEROL 200-25 BLST.W.DEV ORI SCH (09:00)
[2021-12-03] MEDS: ALBUTEROL (0.083%) 2.5MG/3ML NEB HHN SCH ×3 (09:17→21:57)
[2021-12-03] MEDS: BUDESONIDE 0.5MG/2ML NEB HHN SCH ×2 (09:18→21:57)
[2021-12-03] MEDS: OXYBUTYNIN CHLORIDE 5MG TABLET PO SCH (10:08)
[2021-12-03] MEDS: MONTELUKAST SODIUM 10MG TABLET PO SCH (10:08)
[2021-12-03] MEDS: LOSARTAN POTASSIUM 50 MG TABLET PO SCH (10:08)
[2021-12-03] MEDS: CELECOXIB 200MG CAPSULE PO SCH (10:09)
[2021-12-03] MEDS: SENNOSIDES/DOCUSATE SOD 8.6/50MG TABLET PO SCH ×2 (10:09→18:10)
[2021-12-03] MEDS: INSULIN LISPRO 100 UNITS/ML SUBCUT SCH ×4 (10:22→21:46)
[2021-12-03] MEDS ORDERED: HYDROMORPHONE HCL/PF 2MG/ML CPJ IV SCH (11:00)
[2021-12-03] MEDS ORDERED: OXYCODONE HCL 5MG TABLET PO PRN (11:00)
[2021-12-03 12:00] VITALS: BP 120/69
[2021-12-03 19:39] LABS: PLATELET ESTIMATE NORMAL
[2021-12-03 20:00] VITALS: BP 98/58
[2021-12-03] MEDS: HYDROCODONE/ACETAMINOPHEN 10/325MG TABLET PO PRN (21:48)
[2021-12-04] VITALS: BP 94/53
[2021-12-04] MEDS: ALBUTEROL (0.083%) 2.5MG/3ML NEB HHN SCH ×4 (01:57→20:51)
[2021-12-04 04:00] VITALS: BP 130/79
[2021-12-04] MEDS: CEFAZOLIN 1000MG PREMIX 50 ML IV SCH ×3 (05:21→22:23)
[2021-12-04] MEDS: METOCLOPRAMIDE HCL 10MG/2ML VIAL IV SCH ×3 (05:21→22:23)
[2021-12-04] MEDS: BLOOD SUGAR DIAGNOSTIC STRIP TEST SCH ×3 (07:20→21:00)
[2021-12-04 08:00] VITALS: BP 111/65
[2021-12-04] MEDS: OXYBUTYNIN CHLORIDE 5MG TABLET PO SCH (09:04)
[2021-12-04] MEDS: CELECOXIB 200MG CAPSULE PO SCH (09:04)
[2021-12-04] MEDS: MONTELUKAST SODIUM 10MG TABLET PO SCH (09:05)
[2021-12-04] MEDS: LOSARTAN POTASSIUM 50 MG TABLET PO SCH (09:05)
[2021-12-04] MEDS: SENNOSIDES/DOCUSATE SOD 8.6/50MG TABLET PO SCH (09:05)
[2021-12-04] MEDS: BUDESONIDE 0.5MG/2ML NEB HHN SCH ×2 (09:12→20:48)
[2021-12-04] MEDS: INSULIN LISPRO 100 UNITS/ML SUBCUT SCH ×3 (09:17→21:00)
[2021-12-04] MEDS: SODIUM CHLORIDE 0.9% 1,000 ML IV SCH (09:20)
[2021-12-04] MEDS: HYDROCODONE/ACETAMINOPHEN 10/325MG TABLET PO PRN (09:24)
[2021-12-04 21:01] VITALS: BP 101/71
[2021-12-05 00:55] VITALS: BP 113/62
[2021-12-05] MEDS: ALBUTEROL (0.083%) 2.5MG/3ML NEB HHN SCH ×2 (01:08→08:16)
[2021-12-05 04:55] VITALS: BP 128/65
[2021-12-05] MEDS: SODIUM CHLORIDE 0.9% 1,000 ML IV SCH (05:47)
[2021-12-05] MEDS: METOCLOPRAMIDE HCL 10MG/2ML VIAL IV SCH (05:48)
[2021-12-05] MEDS: BLOOD SUGAR DIAGNOSTIC STRIP TEST SCH (07:07)
[2021-12-05] MEDS: INSULIN LISPRO 100 UNITS/ML SUBCUT SCH (07:50)
[2021-12-05 08:00] VITALS: BP 151/71
[2021-12-05] MEDS: BUDESONIDE 0.5MG/2ML NEB HHN SCH (08:16)
[2021-12-05] MEDS: CELECOXIB 200MG CAPSULE PO SCH (10:05)
[2021-12-05] MEDS: MONTELUKAST SODIUM 10MG TABLET PO SCH (10:05)
[2021-12-05] MEDS: OXYBUTYNIN CHLORIDE 5MG TABLET PO SCH (10:05)
[2021-12-05] MEDS: LOSARTAN POTASSIUM 50 MG TABLET PO SCH (10:05)
[2021-12-05] MEDS ORDERED: HYDR-4001 MT (11:52)
== END 2021-12-05 13:06 | disposition home health service (06) | DRG 493 ==
LOC: SURGERY 11:30 → 6EST 18:46
PROC: 0PSF04Z Reposition Right Humeral Shaft with Internal Fixation Device, Open Approach (ICD-10-PCS; principal; 2021-12-02)
PROC: 0PUF0KZ Supplement Right Humeral Shaft with Nonautologous Tissue Substitute, Open Approach (ICD-10-PCS; 2021-12-02)
DX: M80.021A Age-related osteoporosis with current pathological fracture, right humerus, initial encounter for fracture (principal); M97.8XXA Periprosthetic fracture around other internal prosthetic joint, initial encounter; N39.0 Urinary tract infection, site not specified; I10 Essential (primary) hypertension; E11.9 Type 2 diabetes mellitus without complications; E66.9 Obesity, unspecified; J45.909 Unspecified asthma, uncomplicated; W18.39XA Other fall on same level, initial encounter; Z20.822 Contact with and (suspected) exposure to COVID-19; Z96.611 Presence of right artificial shoulder joint; Y93.89 Activity, other specified; Y92.89 Other specified places as the place of occurrence of the external cause; Y99.8 Other external cause status; Z68.34 Body mass index [BMI] 34.0-34.9, adult
CPT/HCPCS: 36415; 73060; 76000; 80048; 82962; 83036; 85025; 87426; 93005; 94640; 97116; 97161; 97163; 97166; 97530; 97535; C1713; C1893; J0690; J1170; J1815; J2250; J2704; J2765; J3010; J3370; J3490; J7030; J7626; C1762

== ENCOUNTER → 2022-05-28 | Outpatient (CLI) | payer MEDICARE, MEDICAID ==
[~2022-05-28] MED LIST changes: -ALBU4TAB6 PO; -BACITRACIN 15GM TUBE TOP ONE; +GADOTERATE MEGLUMINE 5 MMOL/10 ML VIAL IV ONE; +HYDR-4001 MT; -LIDOCAINE HCL/EPINEPHRINE 1%-EPI 1:100,000 20 ML VIAL ONE; -POLYMYXIN B SULFATE 500000 UNITS/VIAL ONE; -SKIN ADHESIVE 0.7 GM EA TOP ONE; -VANCOMYCIN HCL 1 GM/VIAL ONE
== END | disposition home or self-care (01) ==
LOC: MRI 09:46
PROVIDERS: ATTEND Internal Medicine Nephrology
DX: G31.9 Degenerative disease of nervous system, unspecified (principal); R90.82 White matter disease, unspecified; I67.82 Cerebral ischemia; R42 Dizziness and giddiness
CPT/HCPCS: 70553; A9577

== ENCOUNTER 2025-01-17 20:07 | Inpatient (IN) | payer MEDICARE, MEDICAID ==
[~2025-01-17] VITALS: Ht 315 cm; Wt 64.0 kg
[~2025-01-17 20:07] MED LIST changes: +CEL200 PO; -CELE200C PO; -GADOTERATE MEGLUMINE 5 MMOL/10 ML VIAL IV ONE; +MONT-46 PO; -MONT10TA21 PO; +OXYB-52 PO; -OXYB5TAB17 PO; +POLY10DR18 LEFTEYE; -POLY10DR3 LEFTEYE
[2025-01-17 20:20] VITALS: RESP 27
[2025-01-17 20:36] LABS: HEMATOCRIT. 38.6 % (36.0-48.0); HEMOGLOBIN. 12.8 g/dL (12.0-16.0); MEAN PLATELET VOLUME 10.4 fl (7.4-10.4); PLATELET 146 x1000/uL (130-400); RED BLOOD CELL COUNT 4.10 mill/uL (4.2-5.4); RED CELL DISTRIBUTION WIDTH 13.8 % (11.6-14.6)
[2025-01-17] MEDS: PIPERACILLIN/TAZO 3.375G/50ML 50 ML IV ONE (20:37)
[2025-01-17] MEDS: SODIUM CHLORIDE 0.9% 500 ML IV ONE ×2 (20:37→22:40)
[2025-01-17 20:46] LABS: INR 1.0
[2025-01-17 20:52] LABS: CREATININE 0.8 mg/dL (0.6-1.0); TROPONIN I HIGH SENSITIVITY 16 ng/L (3.0-34)
[2025-01-17 20:53] LABS: UREA NITROGEN BLOOD 13 mg/dL (9-23)
[2025-01-17 20:54] LABS: ASPARTATE AMINOTRANSFERASE 38 IU/L (<34)
[2025-01-17 20:55] LABS: BILIRUBIN DIRECT 0.2 mg/dL (<=3.0); BILIRUBIN TOTAL 0.5 mg/dL (0.1-1.0); PROTEIN TOTAL 6.7 g/dL (6.0-8.3)
[2025-01-17 21:06] LABS: BAND% 1.0 % (1.0-6.0); EOSINOPHILS % MANUAL 13.0 % (0.0-5.0); LYMPHOCYTES % MANUAL 24.0 % (20.0-60.0); MONOCYTES % MANUAL 5.0 % (2.0-8.0); NEUTROPHILS % MANUAL 57.0 % (45.0-75.0); PLATELET ESTIMATE NORMAL
[2025-01-17] MEDS: VANCOMYCIN 1G PREMIX 200 ML IV ONE (21:12)
[2025-01-17] MEDS: METHYLPREDNISOLONE SOD SUCC 125MG/2ML (ACT-O-VIAL) IV ONE (21:50)
[2025-01-17 22:50] VITALS: RESP 24
[2025-01-17] MEDS: IPRATROPIUM/ALBUTEROL 0.5-3(2.5)MG/3ML NEB HHN ONE (23:00)
[2025-01-18] VITALS (16 sets, daily range): BP systolic 85–145; BP diastolic 49–88; PULSE 92–107; RESP 17–24; TEMP 36.5–37.2; O2SAT 97–99
[2025-01-18] MEDS ORDERED: IPRATROPIUM/ALBUTEROL 0.5-3(2.5)MG/3ML NEB NEB PRN (01:15)
[2025-01-18] MEDS ORDERED: DIPHENHYDRAMINE 50MG/ML VIAL IV PRN (01:15)
[2025-01-18] MEDS ORDERED: ZOLPIDEM TARTRATE 5MG TABLET PO PRN (01:15)
[2025-01-18] MEDS ORDERED: ACETAMINOPHEN 325MG TABLET PO PRN (01:15)
[2025-01-18] MEDS ORDERED: CLONIDINE 0.1MG TABLET PO PRN (01:15)
[2025-01-18] MEDS ORDERED: MAGNESIUM/ALUMINUM HYDROXIDE/SIMETHICONE 30ML UDC PO PRN (01:15)
[2025-01-18] MEDS ORDERED: DEXTROSE 50% WATER 50ML SYRINGE IV PRN (01:15)
[2025-01-18] MEDS ORDERED: BISACODYL 5MG TABLET PO PRN (01:15)
[2025-01-18] MEDS: METHYLPREDNISOLONE SOD SUCC 40MG/ML (ACT-O-VIAL) IV SCH (02:31)
[2025-01-18 03:19] LABS: CLARITY URINE CLEAR (CLEAR); COLOR URINE YELLOW (YELLOW); GLUCOSE URINE NEGATIVE (NEGATIVE); KETONES URINE NEGATIVE (NEGATIVE); LEUKOCYTE ESTERASE URINE 1+ (NEGATIVE); NITRITE URINE POSITIVE (NEGATIVE); OCCULT BLOOD URINE NEGATIVE (NEGATIVE); PH URINE 5.5 (4.5-8.0); PROTEIN URINE TRACE (NEGATIVE); SPECIFIC GRAVITY URINE 1.013 (1.005-1.030); UROBILINOGEN URINE 0.2 E.U./dL (0.2-1.0)
[2025-01-18 04:10] LABS: BACTERIA URINE TRACE; RBC URINE NONE SEEN /hpf (0-2); SQUAMOUS EPITHELIAL CELL URINE RARE /lpf (RARE/1+); WBC URINE 0-2 /hpf (0-2)
[2025-01-18] MEDS: SODIUM CHLORIDE 0.9% 3ML FLUSH IVF SCH (05:47)
[2025-01-18] MEDS: BLOOD SUGAR DIAGNOSTIC STRIP TEST SCH (07:30)
[2025-01-18] MEDS: IPRATROPIUM/ALBUTEROL 0.5-3(2.5)MG/3ML NEB HHN SCH (08:31)
[2025-01-18] MEDS: ENOXAPARIN 30MG/0.3ML SYR SUBCUT SCH (09:14)
[2025-01-18] MEDS: FUROSEMIDE 40MG/4ML VIAL IVP SCH (09:15)
[2025-01-18] MEDS: CARVEDILOL 3.125 MG TABLET PO SCH (09:15)
[2025-01-18] MEDS: OXYBUTYNIN CHLORIDE 5MG TABLET PO SCH (09:16)
[2025-01-18] MEDS: LOSARTAN 50 MG TABLET PO SCH (09:16)
[2025-01-18] MEDS: INSULIN GLARGINE 100 UNITS/ML SUBCUT SCH (09:19)
[2025-01-18] MEDS: INSULIN LISPRO 100 UNITS/ML SUBCUT SCH (09:20)
[2025-01-18] MEDS: PANTOPRAZOLE 40MG DR TABLET PO SCH (09:24)
[2025-01-18] MEDS: CELECOXIB 200MG CAPSULE PO SCH (09:24)
[2025-01-18 09:45] LABS: BG BASE EXCESS 4.9 mmol/L (-2.0-3.0); BG CARBOXYHEMOGLOBIN 0.5 % (0.5-1.5); BG DEOXYHEMOGLOBIN 1.2 % (0.0-5.0); BG FRACTION INSPIRED OXYGEN 40; BG HCO3 ACT 33.3 mmol/L (21.0-28.0); BG METHEMOGLOBIN 0.3 % (0.5-1.5); BG OXYGEN SATURATION 98.8 % (94.0-98.0); BG OXYHEMOGLOBIN 98.0 % (94.0-98.0); BG PCO2 68.4 mmHg (32.0-45.0); BG PH 7.305 (7.350-7.450); BG PO2 129.0 mmHg (83.0-108.0); BG SAMPLE SITE RIGHT RADIAL; BG TOTAL HEMOGLOBIN 13.1 g/dL (12.0-16.0); BG TOTAL RESPIRATORY RATE 20 b/min; BG VENT MODE MASK - BIPAP; BG VENT RATE 16.0 set
[2025-01-19] VITALS (16 sets, daily range): BP systolic 100–125; BP diastolic 59–106; PULSE 91–109; RESP 14–25; TEMP 36.3–36.9; O2SAT 93–100
[2025-01-19] MEDS: ACETAMINOPHEN 325MG TABLET PO PRN (06:03)
[2025-01-20] VITALS (12 sets, daily range): BP systolic 105–131; BP diastolic 57–85; PULSE 102–112; RESP 15–26; TEMP 36.5–37; O2SAT 90–96
[2025-01-20] MEDS: IPRATROPIUM/ALBUTEROL 0.5-3(2.5)MG/3ML NEB HHN SCH (00:32)
[2025-01-20] MEDS: ONDANSETRON HCL 4MG/2ML INJ IV PRN (09:39)
[2025-01-20] MEDS: DOCUSATE SODIUM 100MG CAPSULE PO SCH (09:40)
[2025-01-20] MEDS: DOCUSATE SODIUM SUGAR FREE 100MG/10ML UDC NG SCH (10:03)
== END 2025-01-20 15:45 | disposition left against medical advice (07) | DRG 189 ==
LOC: ER 20:07 → 5EST 21:44 → EDBEDREQTM 21:54 → EDBEDREQSVC 21:54 → EDBEDREQ 21:54 → ENRESERV 22:15 → EDBEDREQTM 22:30 → EDBEDREQSVC 22:30
PROVIDERS: ADMIT Internal Medicine; ATTEND Internal Medicine
PROC: 5A09357 Assistance with Respiratory Ventilation, Less than 24 Consecutive Hours, Continuous Positive Airway Pressure (ICD-10-PCS; principal; 2025-01-17)
DX: J96.21 Acute and chronic respiratory failure with hypoxia (principal); J44.1 Chronic obstructive pulmonary disease with (acute) exacerbation; Z68.1 Body mass index [BMI] 19.9 or less, adult; I11.0 Hypertensive heart disease with heart failure; J96.22 Acute and chronic respiratory failure with hypercapnia; M19.90 Unspecified osteoarthritis, unspecified site; E66.9 Obesity, unspecified; E11.9 Type 2 diabetes mellitus without complications; I25.10 Atherosclerotic heart disease of native coronary artery without angina pectoris; I50.9 Heart failure, unspecified; Z53.29 Procedure and treatment not carried out because of patient's decision for other reasons; Z96.611 Presence of right artificial shoulder joint; Z96.612 Presence of left artificial shoulder joint; Z55.6 Problems related to health literacy; Z88.5 Allergy status to narcotic agent; Z99.81 Dependence on supplemental oxygen; Z88.8 Allergy status to other drugs, medicaments and biological substances
CPT/HCPCS: 36415; 36600; 71045; 80048; 80076; 81003; 82375; 82805; 82962; 83036; 83605; 83735; 83880; 84145; 84484; 85025; 93005; 93306; 93970; 94070; 94640; 94660; 94664; 94760; 96365; 96367; 99291; J1650; J1815; J1938; J2543; J2919; J3373; J7040